=== PATIENT | female | born 1950 | race Caucasian/White ===

== ENCOUNTER 2018-11-19 09:36 | Outpatient (CLI) | payer OTHER ==
[~2018-11-19 09:36] MED LIST: SYNTHROID50 MCG PO
== END 2018-11-19 15:00 | disposition home or self-care (01) ==
LOC: LAB 09:36
DX: R19.5 Other fecal abnormalities (principal); E03.8 Other specified hypothyroidism; E78.00 Pure hypercholesterolemia, unspecified; E11.65 Type 2 diabetes mellitus with hyperglycemia; E55.9 Vitamin D deficiency, unspecified

== ENCOUNTER 2018-11-19 11:03 | Outpatient (CLI) | payer OTHER | END 2018-11-19 11:13 | disposition home or self-care (01) | LOC: SONOGRAMA 11:03 | DX: E04.8 Other specified nontoxic goiter (principal) ==

== ENCOUNTER → 2018-11-20 09:58 | Outpatient (CLI) | payer OTHER | END | disposition home or self-care (01) | LOC: LAB 09:58 | DX: E78.00 Pure hypercholesterolemia, unspecified (principal); E03.8 Other specified hypothyroidism; E11.65 Type 2 diabetes mellitus with hyperglycemia; E55.9 Vitamin D deficiency, unspecified; R19.5 Other fecal abnormalities ==

== ENCOUNTER → 2018-11-26 | Outpatient (CLI) | payer OTHER | END | disposition home or self-care (01) | LOC: NUCLEAR 11:55 | DX: M81.0 Age-related osteoporosis without current pathological fracture (principal) ==

== ENCOUNTER → 2019-11-17 10:19 | Outpatient (CLI) | payer OTHER | END | disposition home or self-care (01) | LOC: LAB 10:19 | PROVIDERS: ATTEND Internal Medicine Endocrinology, Diabetes & Metabolism | DX: E03.8 Other specified hypothyroidism (principal); E11.65 Type 2 diabetes mellitus with hyperglycemia; E78.00 Pure hypercholesterolemia, unspecified; Z12.11 Encounter for screening for malignant neoplasm of colon ==

== ENCOUNTER 2020-08-17 09:57 | Outpatient (CLI) | payer OTHER | END 2020-08-17 10:47 | disposition home or self-care (01) | LOC: LAB 09:57 | DX: E03.8 Other specified hypothyroidism (principal); E78.2 Mixed hyperlipidemia; E55.9 Vitamin D deficiency, unspecified; K59.00 Constipation, unspecified; D64.9 Anemia, unspecified ==